=== PATIENT | female | born 1990 | race Caucasian/White ===

== ENCOUNTER 2020-10-09 10:56 | Outpatient (CLI) | payer BC, SELFPAY ==
[2020-10-09] VITALS (16 sets, daily range): BP systolic 106–138; BP diastolic 64–85; PULSE 70–91; TEMP 36.9; BMI 27.6
--- NOTE | 2020-10-09 12:28 | PC.NURSE ---
Dr. Diaz informed of reactive NST, BP's, labs just sent. Pt rates her headache as a 6 out of 10- pain is mainly above her right eye- some light sensitivity. Discussed pt hx of migraines, she tried Fioricet earlier in the for migraines without any relief. Pt had 1 gm of Tylenol at home at 0600 this am. Informed of nausea with headache and pt c/o have 2-3 loose/watery stools for the last 3 days. Headache x's 4 days without any improvement with Tylenol. Orders received.
[2020-10-09 12:33] LABS: Basophils Percent Auto 0.1 % (0.2-1.2); Eosinophils Absolute Auto 0.1 K/mm3 (0-0.3); Eosinophils Percent Auto 0.6 % (0-4.4); Hematocrit 33.1 % (37.0-47.0); Hemoglobin 11.4 g/dL (12.0-15.0); Immature Granulocyte Absolute 0.04 K/mm3 (0.00-0.031); Immature Granulocyte Percent A 0.4 % (0-0.5); Lymphocytes Absolute Auto 1.31 K/mm3 (0.9-3.2); Lymphocytes Percent Auto 14.6 % (18.3-44.2); Mean Corpuscular HGB Conc 34.4 g/dl (32-36); Mean Corpuscular Hemoglobin 32.3 pg (26-34); Mean Corpuscular Volume 93.8 fl (80-100); Mean Platelet Volume 10.8 fl (7.4-10.4); Monocytes Absolute Auto 0.8 K/mm3 (0.1-0.6); Monocytes Percent Auto 9.2 % (2.6-8.5); Neutrophils Absolute Auto 6.7 K/mm3 (1.3-6.7); Neutrophils Percent Auto 75.1 % (45.5-73.1); Platelet Count Result 213 k/mm3 (150-375); Red Blood Count 3.53 M/mm3 (4.2-5.4); Red Cell Distribution Width 12.4 % (11.5-14.5)
[2020-10-09 12:38] LABS: Add Urine Microscopic? YES; Appearance Urine Cloudy (Clear); Bacteria Urine 3+ /hpf; Bilirubin Urine Negative (Negative); Blood Urine Negative (Negative); Color Urine Yellow (Yellow); Glucose Urine UA Negative (Negative); Ketones Urine Negative (Negative); Leukocyte Esterase Ur Negative LEU/UL (Negative); Nitrate Urine Negative (Negative); Protein Urine Negative (Negative); RBC Urine 0-2 /hpf (0-2); Squamous Epithelial Cell Urine Occasional /hpf (Few); Urobilinogen Urine Negative mg/dL (<2.0); WBC Urine 0-3 /hpf
[2020-10-09 12:50] LABS: Creatinine Urine 52.6 mg/dL; Total Protein Urine Random 14 mg/dL; Ur Ttl Prot Creatinine Ratio 0.27 mg/mg (0-0.20)
[2020-10-09 12:51] LABS: Alanine Aminotransferase 16 U/L (4-35); Albumin Level 3.1 g/dL (3.5-5.1); Alkaline Phosphatase 146 U/L (38-126); Anion Gap 5 mmol/L (8-16); Aspartate Amino Transferase 30 U/L (14-36); Bilirubin,Total 0.3 mg/dL (0.2-1.3); Blood Urea Nitrogen 8 mg/dL (7-17); Calcium 8.7 mg/dL (8.4-10.2); Carbon Dioxide 23 mmol/L (22-30); Chloride 107 mmol/L (98-107); Estimated Glomerular Filt Rate > 60; Glucose 72 mg/dL (65-105); Potassium 4.1 mmol/L (3.4-5.0); Sodium 135 mmol/L (137-145); Uric Acid 6.1 mg/dL (2.5-7.5)
[2020-10-09] MEDS: ONDANSETRON HCL ODT 4 MG TABLET PO (12:52)
[2020-10-09] MEDS: MAGNESIUM OXIDE 400 MG TABLET PO (13:19)
--- NOTE | 2020-10-09 14:33 | PC.NURSE ---
MD informed of lab results. Nausea resolved after Zofran. Still rates headache a 5-6 out of 10. Pt has eaten lunch and starting to drink more fluids. Orders for discharge received.
--- NOTE | 2020-10-09 14:54 | PC.NURSE ---
Pt was sent home with 24 hr urine collection supplies to continue 24 hr urine collection that was started at 1110 today.
--- NOTE | 2020-10-09 14:57 | PC.NURSE ---
Dr. Diaz informed pt is requesting note to be off work for the remainder of . Order received. Pt will go through MD office to complete FMLA paperwork.
== END 2020-10-09 15:08 | disposition home or self-care (01) ==
LOC: ANHOBOP 10:59 → ANHOBPP 10:59
PROVIDERS: Visit Provider Obstetrics & Gynecology
DX: O13.9 Gestational [pregnancy-induced] hypertension without significant proteinuria, unspecified trimester (principal); Z3A.00 Weeks of gestation of pregnancy not specified
CPT/HCPCS: 36415; 59025; 80053; 81001; 82570; 84156; 84550; 85025; 99199; A9270

== ENCOUNTER 2020-10-10 12:39 | Outpatient (CLI) | payer BC, SELFPAY ==
[2020-10-10 12:48] VITALS: BMI 23.9
[2020-10-10 13:31] LABS: Collection Time Urine 24 HOURS
[2020-10-10 13:32] LABS: Total Volume 24 Hour Urine 3600 ml
[2020-10-10 13:46] LABS: Specific Gravity Ur 1.015
[2020-10-10 14:12] LABS: Creatinine Urine 33.2 mg/dL; Patient Weight 143 Lbs; Total Protein Urine Random 14 mg/dL
[2020-10-10 14:16] LABS: Total Protein Urine 24 Hr 504 mg/24hr (28-141)
== END 2020-10-10 12:40 | disposition home or self-care (01) ==
LOC: ANHOBOP 12:44
PROVIDERS: Visit Provider Obstetrics & Gynecology
DX: O13.9 Gestational [pregnancy-induced] hypertension without significant proteinuria, unspecified trimester (principal); Z3A.00 Weeks of gestation of pregnancy not specified
CPT/HCPCS: 81050; 82575; 84156

== ENCOUNTER 2020-10-10 17:32 | Observation (INO) | payer BC, SELFPAY ==
--- NOTE | 2020-10-10 18:15 | OBADM ---
This patient, Elizabeth Lieberman, admitted to the OB room Labor/Delivery/Recovery 103 for observation. Patient/family oriented to hospital policies and general routines including ID bracelet, bed and alarms, visiting hours, pain management, procedures, bathroom and other care routines, personal items, smoking policy, room service/diet, and visiting hours. Patient/Family are encouraged to report perceived risks to care and to ask questions if they do not understand what they are told or what they should do.
[2020-10-10 18:20] VITALS: BMI 26.9
--- NOTE | 2020-10-15 07:32 | PM.OBTRLD ---
OB - Triage/Final Diagnosis Visit Information Reason for evaluation: threatened labor Comments/Additional reasons for admission: I have assessed the risk for this patient, Elizabeth Arriaga Mio, and determined that she would benefit from observation care.
== END 2020-10-10 20:35 | disposition home or self-care (01) ==
PROVIDERS: Admitting Provider Obstetrics & Gynecology; Visit Provider Obstetrics & Gynecology
DX: O47.1 False labor at or after 37 completed weeks of gestation (principal); Z3A.37 37 weeks gestation of pregnancy
CPT/HCPCS: G0378; G0379

== ENCOUNTER 2020-10-18 15:35 | Inpatient (IN) | payer BC, SELFPAY ==
[2020-10-18] VITALS (7 sets, daily range): BP systolic 118–134; BP diastolic 67–91; PULSE 78–91; RESP 16–18; TEMP 36.8–37.2; BMI 27.3
[2020-10-18 16:18] LABS: Basophils Percent Auto 0.1 % (0.2-1.2); Eosinophils Absolute Auto 0.1 K/mm3 (0-0.3); Hemoglobin 11.4 g/dL (12.0-15.0); Immature Granulocyte Absolute 0.04 K/mm3 (0.00-0.031); Immature Granulocyte Percent A 0.5 % (0-0.5); Lymphocytes Absolute Auto 1.37 K/mm3 (0.9-3.2); Lymphocytes Percent Auto 15.5 % (18.3-44.2); Mean Corpuscular HGB Conc 33.5 g/dl (32-36); Mean Corpuscular Hemoglobin 31.6 pg (26-34); Mean Corpuscular Volume 94.2 fl (80-100); Mean Platelet Volume 10.9 fl (7.4-10.4); Monocytes Percent Auto 11.3 % (2.6-8.5); Neutrophils Absolute Auto 6.3 K/mm3 (1.3-6.7); Neutrophils Percent Auto 71.6 % (45.5-73.1); Platelet Count Result 203 k/mm3 (150-375); Red Blood Count 3.61 M/mm3 (4.2-5.4); Red Cell Distribution Width 12.7 % (11.5-14.5); White Blood Count 8.8 K/mm3 (4.5-10.0)
[2020-10-18] MEDS: DINOPROSTONE 10 MG VAG INSERT VAGINAL (16:25)
--- NOTE | 2020-10-18 16:33 | LDADM ---
This patient, Elizabeth Lieberman, was admitted to Labor/Delivery/Recovery 104 on 10/18/20 at 15:35. Plans for labor, pain management and were discussed with patient. Patient/family oriented to hospital policies and general routines including ID bracelet, bed and alarms, visiting hours, pain management, procedures, bathroom and other care routines, personal items, smoking policy, room service/diet and guest tray routines, security routines, call light and visiting hours. Patient/Family are encouraged to report perceived risks to care and to ask questions if they do not understand what they are told or what they should do. See OBIX for further documentation.
[2020-10-19] VITALS (157 sets, daily range): BP systolic 95–152; BP diastolic 51–108; PULSE 65–162; RESP 13–18; TEMP 36.4–36.9; O2SAT 95–100
[2020-10-19] MEDS: LACTATED RINGERS 1,000 ML 125 ML IV CONT ×3 (04:23→10:06)
[2020-10-19] MEDS: OXYTOCIN 30 UNITS/NS 500 ML 30 UNITS/500 ML BAG 6 UNITS IV CONT (04:25)
[2020-10-19] MEDS: fentaNYL CITRATE INJ (*CRX) 100 MCG/2 ML VIAL 50 MCG IV PUSH (08:56)
--- NOTE | 2020-10-19 09:42 | WPDANESEPP ---
Anes - Eval Pre Procedure Procedure: Labor Epidural Date/Time: 10/19/20 09:42 Surgeon: Quoc Preop Diagnosis: Labor Pain Pre Op Diagnosis: Induction of Labor Patient Data Age: 30 Gender: F Height: 5 ft Weight: 63.6 kg Last Vital Signs Temp 36.5 C 10/19/20 08:11 Pulse 88 10/19/20 09:36 Resp 16 10/18/20 22:21 BP 107/65 10/19/20 09:36 Pulse Ox 100 10/19/20 09:37 Allergies Allergy/AdvReac Type Severity Reaction Status Date / Time codeine Allergy Intermediate Rash Verified 10/18/20 16:26 Home Medications Medication Instructions Recorded Confirmed Type PNV cmb#95-ferrous fumarate-FA 1 tablet PO DAILY 09/25/20 10/18/20 History [] acetaminophen [Tylenol Extra 1,000 mg PO Q6H PRN 10/09/20 10/18/20 History Strength] Laboratory Tests 10/18/20 10/18/20 10/18/20 16:13 16:13 16:13 WBC 8.8 K/mm3 K/mm3 (4.5-10.0) RBC 3.61 M/mm3 L M/mm3 (4.2-5.4) Hgb 11.4 g/dL L g/dL (12.0-15.0) Hct 34.0 % L % (37.0-47.0) MCV 94.2 fl fl (80-100) MCH 31.6 pg pg (26-34) MCHC 33.5 g/dl g/dl (32-36) RDW 12.7 % % (11.5-14.5) Plt Count 203 k/mm3 k/mm3 (150-375) MPV 10.9 fl H fl (7.4-10.4) Immature Gran % (Auto) 0.5 % % (0-0.5) Neut % (Auto) 71.6 % % (45.5-73.1) Lymph % (Auto) 15.5 % L % (18.3-44.2) Bryan % (Auto) 11.3 % H % (2.6-8.5) Eos % (Auto) 1.0 % % (0-4.4) Baso % (Auto) 0.1 % L % (0.2-1.2) Lymph # (Auto) 1.37 K/mm3 K/mm3 (0.9-3.2) Bryan # (Auto) 1.0 K/mm3 H K/mm3 (0.1-0.6) Eos # (Auto) 0.1 K/mm3 K/mm3 (0-0.3) Baso # (Auto) 0.0 K/mm3 K/mm3 (0.0-0.1) Abs Immat Gran (auto) 0.04 K/mm3 H K/mm3 (0.00-0.031) Absolute Neuts (auto) 6.3 K/mm3 K/mm3 (1.3-6.7) Absolute Nucleated RBC 0.0 K/mm3 K/mm3 (0.0-0.012) Nucleated RBC % 0.0 % % (0.0-0.2) RPR Pending Blood Type B Positive Antibody Screen Negative : gestational age (10/25/20, ) Patient hx anesthesia problems: none Family hx anesthesia problems: none [facility] Family History Family History Other No pertinent family history Social History Social History Smoking status: Never smoker Substance use: never Gender identity (if verbalized by the patient): Female Spiritual care concerns: No Exam Day of Procedure 10/19/20 09:42 Patient weight: normal Heart: regular rate and rhythm Lungs: normal air movement Airway: Mallampati scale class II Neurological: alert and oriented
[2020-10-19] MEDS: ONDANSETRON INJ 4 MG/2 ML VIAL IV PUSH ×2 (10:39→14:04)
--- NOTE | 2020-10-19 16:02 | WPDHPUPDATE1 ---
History and Physical Update Update Date/Time: 10/19/20 16:02 History and Physical has been reviewed, including an updated exam of the patient. There are NO changes in the patient's condition. Risks, benefits, and alternatives have been discussed and questions answered. Patient agrees to proceed with procedure.
--- NOTE | 2020-10-19 16:02 | PM.IMHP ---
H&P: HPI History of Present Illness Date/Time: 10/19/20 16:02 30-year-old 1 patient at 39 weeks presents for induction of labor. Estimated weight prior to admission 8-1/2lb. records are on the chart and otherwise care has been uncomplicated. Chief Complaint: 39 week Review of Systems Review of Systems: All systems reviewed & are unremarkable except as noted in HPI and below PMFSH Family History Family History Other No pertinent family history Social History Social History Smoking status: Never smoker Substance use: never Gender identity (if verbalized by the patient): Female Spiritual care concerns: No Meds Home Medications and Allergies Home Medications Medication Instructions Recorded Confirmed Type PNV cmb#95-ferrous fumarate-FA 1 tablet PO DAILY 09/25/20 10/18/20 History [] acetaminophen [Tylenol Extra 1,000 mg PO Q6H PRN 10/09/20 10/18/20 History Strength] Allergies Allergy/AdvReac Type Severity Reaction Status Date / Time codeine Allergy Intermediate Rash Verified 10/18/20 16:26 Vital Signs Vital Signs - 24 hr 10/18/20 16:26 10/18/20 16:30 10/18/20 16:31 Temperature 36.9 C Pulse Rate 88 86 Respiratory Rate Blood Pressure 128/85 126/72 Pulse Oximetry 10/18/20 17:00 10/18/20 18:27 10/18/20 22:21 Temperature 37.2 C 36.8 C Pulse Rate 82 78 Respiratory Rate 18 16 Blood Pressure 118/67 127/91 H Pulse Oximetry 10/19/20 02:57 10/19/20 02:58 10/19/20 04:30 Temperature 36.7 C 36.7 C Pulse Rate 83 80 Respiratory Rate Blood Pressure 134/86 125/79 Pulse Oximetry 10/19/20 04:45 10/19/20 05:00 10/19/20 05:15 Temperature Pulse Rate 80 81 80 Respiratory Rate Blood Pressure 120/75 121/78 132/87 Pulse Oximetry 10/19/20 05:30 10/19/20 05:45 10/19/20 06:00 Temperature Pulse Rate 81 89 76 Respiratory Rate Blood Pressure 125/88 125/95 H 133/87 Pulse Oximetry 10/19/20 06:15 10/19/20 06:30 10/19/20 06:45 Temperature Pulse Rate 87 85 78 Respiratory Rate Blood Pressure 122/86 130/95 H 133/88 Pulse Oximetry 10/19/20 07:00 10/19/20 07:15 10/19/20 07:30 Temperature Pulse Rate 79 86 81 Respiratory Rate Blood Pressure 131/86 128/91 H 127/87 Pulse Oximetry 10/19/20 08:00 10/19/20 08:11 10/19/20 08:30 Temperature 36.5 C Pulse Rate 77 84 Respiratory Rate Blood Pressure 146/82 H 144/88 H Pulse Oximetry 10/19/20 09:00 10/19/20 09:17 10/19/20 09:19 Temperature Pulse Rate 90 95 Respiratory Rate Blood Pressure 133/83 131/88 Pulse Oximetry 99 10/19/20 09:22 10/19/20 09:25 10/19/20 09:27 Temperature Pulse Rate 96 90 Respiratory Rate Blood Pressure 131/81 125/78 Pulse Oximetry 98 100 10/19/20 09:28 10/19/20 09:30 10/19/20 09:32 Temperature Pulse Rate 93 100 72 Respiratory Rate Blood Pressure 130/84 134/78 112/60 Pulse Oximetry 100 10/19/20 09:33 10/19/20 09:36 10/19/20 09:37 Temperature Pulse Rate 87 88 Respiratory Rate Blood Pressure 113/72 107/65 Pulse Oximetry 100 10/19/20 09:42 10/19/20 09:45 10/19/20 09:47 Temperature Pulse Rate 81 90 Respiratory Rate Blood Pressure 102/53 L 102/60 Pulse Oximetry 99 99 10/19/20 09:48 10/19/20 09:51 10/19/20 09:52 Temperature Pulse Rate 90 85 Respiratory Rate Blood Pressure 107/57 L 105/61 Pulse Oximetry 98 10/19/20 09:54 10/19/20 09:56 10/19/20 09:57 Temperature Pulse Rate 83 88 Respiratory Rate Blood Pressure 101/58 L 99/65 L Pulse Oximetry 97 10/19/20 10:00 10/19/20 10:02 10/19/20 10:03 Temperature Pulse Rate 85 90 Respiratory Rate Blood Pressure 107/62 110/66 Pulse Oximetry 98 10/19/20 10:07 10/19/20 10:12 10/19/20 10:15 Temperature Pul
[2020-10-19] MEDS: ceFAZolin 2 GM/D5W 50 ML 2 GM/50 ML BAG IVPB (16:04)
[2020-10-19] MEDS: KETOROLAC 30 MG/ML VIAL (*BKC) IV PUSH (16:32)
--- NOTE | 2020-10-19 16:39 | P.PCNOB_ITS ---
OB - Delivery Note Procedure Procedure: Procedures Operation Date: 10/19/20 16:15 <No data on this case meets the specified criteria> Route of delivery: Indication for instrumentation: other (Arrest of descent) Specimen: No Quantitative Blood Loss (ml): 295 Anesthesia type: Epidural Disposition: floor Narrative: Patient prepped and draped in usual manner for this procedure. Pfannenstiel incision was carried to the fascia and extended bilaterally the length of the skin incision. Superiorly and inferiorly dissected away from the rectus muscles peritoneum maternal entered and the bladder flap was developed. Uterus scored with clear fluid noted and vertex was delivered section naso- oropharynx rest baby was delivered as well. Placenta removed manually uterus was exteriorized cleared of membranes and clots and rendered hemostatic with a 0 Monocryl running interlocking manner with good approximation noted. Uterus was turned the abdominal cavity all subfascial tissue was noted be hemostatic and the in uterine incision was again inspected with hemostasis noted. Fascia was approximated using 0 Vicryl from the left angle midline right angle to the midline subcutaneous tissue approximated using 0 plain suture. Skin was then approximated using higinio. Patient was sent to cover room in stable condition. [place] Baby Weeks of gestation at delivery: 39 gender: Female Weight (pounds): 8 Weight (ounces): 10 score one minute: 8 score five minutes: 9
[2020-10-19] MEDS: fentaNYL CITRATE INJ (*CRX) 100 MCG/2 ML VIAL 25 MCG IV PUSH ×2 (18:24→18:48)
[2020-10-19] MEDS: OXYTOCIN 30 UNITS/NS 500 ML 30 UNITS/500 ML BAG 125 UNITS IV CONT (18:48)
[2020-10-19] MEDS: LORATADINE 10 MG TABLET (19:54)
[2020-10-19] MEDS: HYDROcodone/acetaminophen (*CRX) 5-325 MG TABLET 1 TAB PO (21:15)
--- NOTE | 2020-10-19 21:36 | PC.NURSE ---
10/19/2020 at 1915 Patient transferred to post room #290 via stretcher. Support person present. Patient transferred with assistance of 2 nurses and 1 technical planner using the maxi air glide mattress. Patient tolerated well. Patient and her significant other oriented to unit, room, information board, rooming in, admission packet and security measures. Patient verbalizes understanding.
[2020-10-19] MEDS: KCL 20 MEQ/D5/0.45% SOD CHL 1,000 ML 125 ML IV CONT (23:13)
[2020-10-20] VITALS (7 sets, daily range): BP systolic 112–137; BP diastolic 75–85; PULSE 70–85; RESP 15–18; TEMP 36.6–37.1; O2SAT 100
[2020-10-20] MEDS: IBUPROFEN 600 MG TABLET PO ×3 (04:36→21:00)
[2020-10-20 05:26] LABS: Basophils Percent Auto 0.1 % (0.2-1.2); Hemoglobin 11.2 g/dL (12.0-15.0); Immature Granulocyte Absolute 0.12 K/mm3 (0.00-0.031); Immature Granulocyte Percent A 0.6 % (0-0.5); Lymphocytes Absolute Auto 1.21 K/mm3 (0.9-3.2); Lymphocytes Percent Auto 5.9 % (18.3-44.2); Mean Corpuscular HGB Conc 33.9 g/dl (32-36); Mean Corpuscular Hemoglobin 31.4 pg (26-34); Mean Corpuscular Volume 92.4 fl (80-100); Mean Platelet Volume 11.3 fl (7.4-10.4); Monocytes Absolute Auto 1.5 K/mm3 (0.1-0.6); Monocytes Percent Auto 7.1 % (2.6-8.5); Neutrophils Absolute Auto 17.8 K/mm3 (1.3-6.7); Neutrophils Percent Auto 86.3 % (45.5-73.1); Platelet Count Result 207 k/mm3 (150-375); Red Blood Count 3.57 M/mm3 (4.2-5.4); Red Cell Distribution Width 12.3 % (11.5-14.5); White Blood Count 20.6 K/mm3 (4.5-10.0)
[2020-10-20] MEDS: DEXTROSE 5%/0.45% SOD CHL 1,000 ML 125 ML IV CONT (07:15)
--- NOTE | 2020-10-20 07:36 | WPDANLDPN2 ---
Anes-Prog Note L&D Date/Time: 10/20/20 07:36 Comfortable throughout: labor and section Neuraxial method: epidural Epidural/Spinal procedure site: clean & non-tender Neuro status: Neuro function grossly intact. Cardiovascular status: normal Respiratory status: normal Airway patency: baseline Mental status: baseline Post-Op hydration status: normal Vital Signs: Last Vital Signs Temp 37.1 C 10/20/20 04:50 Pulse 73 10/20/20 04:50 Resp 18 10/20/20 04:50 BP 128/85 10/20/20 04:50 Pulse Ox 97 10/19/20 23:14 Pain score (VAS): 0/10. Patient resting in bed at time of assessment, appears comfortable. Support person at bedside. I/O: Intake & Output 10/19/20 10/19/20 10/20/20 15:59 23:59 07:59 Intake Total 1999 150 1285 Output Total 898 Balance 2000 -748 1285 Post-procedural complaints: none Patient feedback: Patient satisfied with anesthetic care.
--- NOTE | 2020-10-20 07:36 | WPDANLDNPN2 ---
Anes-Prog Note L&D-Neuraxial Date/Time: 10/20/20 07:36 Neuraxial medications: epidural PF morphine Opiod-related complaints: none Patient feedback: Patient satisfied with post-operative pain management.
[2020-10-20 07:58] LABS: Rapid Plasma Reagin Non-Reactive (NonReactive)
[2020-10-20] MEDS: DOCUSATE SODIUM 100 MG CAPSULE PO ×2 (09:16→16:12)
[2020-10-20] MEDS: HYDROcodone/acetaminophen (*CRX) 5-325 MG TABLET 1 TAB PO ×3 (09:16→21:02)
[2020-10-20] MEDS: MULTIVIT/MIN/PREN/FOL AC/IRON TABLET 1 TAB PO (09:16)
--- NOTE | 2020-10-20 10:40 | PC.NURSE ---
Mother called out for assist with feeding. Mother reports infant is eagerly feeding with tenderness at times. is frequently sleepy and parents report they are not waking to feed by three hours. Reviewed infant feeding cues, frequencies, duration of feedings, feeding elimination flow sheet, and signs of adequate intake. Advised to call out for RN to wake for feedings as needed. Demonstrated stimulation techniques to wake for feeding. Assisted with infant to breast. Reviewed positioning/alignment in cross cradle, holding breast in ?U? hold and guided asymmetrical latch on. able to latch correctly after several attempts and minutes of stimulation to wake. Infant nursed eagerly with bursts of steady draws and occasional noted followed with long pausing. Suggested mother stimulate while feeding to increase stimulate, increase intake and to assist with maintaining deep latch. Reviewed signs of a correct latch, effective nursing and suck swallow ratio. Infant would slip to shallow latch, mother reports tenderness. Demonstrated how to adjust latch more deeply while feeding. Mother reports she can feel change in latch and has no tenderness. Nipple care reviewed of lanolin after feedings, warm compresses as needed. Mother has had a surgery to right wrist, which right wrist fixed and unable to hold breast for latching, Worked with football on right breast and cross cradle to left to best assist mother with positioning/alignment. Assisted with pillows and wrist roll to support infant. Instructed mother to call out for RN assistance if she is unable to latch infant for feeding or she has discomfort with nursing. Instructed feeding should be initiated three hours from start of last feeding or if feeding cues are noted before. Mother voiced understanding of information shared.
--- NOTE | 2020-10-20 12:00 | PC.NURSE ---
Mother called out for assist with positioning for feeding. Demonstrated stimulation techniques to wake for feeding. Assisted with infant to breast. Reviewed positioning/alignment football, holding in C hold breast and guided asymmetrical latch on. was able to latch correctly. Infant nursed eagerly with bursts of steady draws and occasional swallowing noted followed with long pausing. Reviewed signs of a correct latch, effective nursing and suck swallow ratio. was able to maintain latch without discomfort to mother. Nipple care reviewed. Stressed for parents to stimulate infant to keep awake and feeding effectively. Instructed mother to call out for RN assistance if she is unable to latch infant for feeding or she has discomfort with nursing. Instructed feeding should be initiated three hours from start of last feeding or if feeding cues are noted before. Mother voiced understanding of information shared.
--- NOTE | 2020-10-20 13:24 | WPDANESPN ---
Anes - Prog Note Post-Op Date/Time: 10/20/20 13:24 Cardiovascular status: normal Respiratory status: normal Airway patency: baseline Mental status: baseline Post-Op hydration status: normal Vital Signs: Last Vital Signs Temp 36.6 C 10/20/20 12:30 Pulse 70 10/20/20 13:00 Resp 16 10/20/20 13:00 BP 112/75 10/20/20 12:30 Pulse Ox 100 10/20/20 13:00 Pain Score (VAS): 0 I/O: Intake & Output 10/19/20 10/20/20 10/20/20 23:59 07:59 15:59 Intake Total 150 1385 1966 Output Total 841 564 9021 Balance -748 835 766 Laboratory Tests 10/20/20 04:42 10/18/20 10/20/20 16:13 04:42 WBC 20.6 H RBC 3.57 L Hgb 11.2 L Hct 33.0 L MCV 92.4 MCH 31.4 MCHC 33.9 RDW 12.3 Plt Count 207 MPV 11.3 H Immature Gran % (Auto) 0.6 H Neut % (Auto) 86.3 H Lymph % (Auto) 5.[address] [facility] % (Auto) 7.1 Eos % (Auto) 0.0 Baso % (Auto) 0.1 L Lymph # (Auto) 1.21 [facility] # (Auto) 1.5 H Eos # (Auto) 0.0 Baso # (Auto) 0.0 Abs Immat Gran (auto) 0.12 H Absolute Neuts (auto) 17.8 H Absolute Nucleated RBC 0.0 Nucleated RBC % 0.0 RPR Non-reactive Post-procedural complaints: none Patient Feedback: Patient satisfied with anesthetic care.
--- NOTE | 2020-10-20 13:24 | WPDANLDNPN2 ---
Anes-Prog Note L&D-Neuraxial Date/Time: 10/20/20 13:24 Neuraxial medications: intrathecal PF morphine Opiod-related complaints: none Patient feedback: Patient satisfied with post-operative pain management.
[2020-10-20] MEDS: HYDROcodone/acetaminophen (*CRX) 10-325 MG TABLET 1 TAB PO (16:16)
[2020-10-21] MEDS: HYDROcodone/acetaminophen (*CRX) 5-325 MG TABLET 1 TAB PO ×2 (02:04→07:59)
[2020-10-21] MEDS: SIMETHICONE 80 MG TAB.CHEW PO ×3 (02:04→12:04)
--- NOTE | 2020-10-21 07:00 | PC.NURSE ---
PT introductions made and plan of care discussed per post op c section, pain management, breast feeding, daily care activities and pending discharge to home. PT will and has received instructions and education per one to one discussion, demonstration, and mom baby care guide. Mom has no barriers to learning. Mom and spouse both recipients of such instructions. Both verbalized understanding of such care.
--- NOTE | 2020-10-21 07:36 | P.DS_ITS ---
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 Status: Acute OB - DS: Summary OB Procedures : None OB Procedures Intrapartum: OB Procedures: : None Peripartum Data Procedures: Procedures Operation Date: 10/19/20 16:15 Actual Procedure Side Surgeon p Section Not Applicable Al Kumari MD Time Spent with Patient Time attestation: Total time spent providing and/or coordinating discharge services: DS: Data Data Completed and Pending Labs on day of discharge: Labs from last 24 hours 10/18/20 16:13 RPR Non-reactive Discharge Plan Discharge Discharging Clinician: Al Kumari Patient Disposition: Home, Self-Care Activity: as tolerated Diet: as tolerated Wound Care Instructions: incision open to air Patient Instructions: Antibiotic Form Stand Alone Forms: General Discharge Information Follow-up/Referrals: Al Kumari MD [Physician] - 3 Weeks Discharge Medications: New hydrocodone-acetaminophen 5-325 mg Tablet 1 tablet PO Q3H PRN (Reason: Moderate Pain (4-6)) Qty: 30 RF: 0 ibuprofen 600 mg Tablet 600 mg PO Q6H PRN (Reason: Cramping) Qty: 30 RF: 0 Continued acetaminophen [Tylenol Extra Strength] 500 mg Tablet 1,000 mg PO Q6H PRN (Reason: Headache) RF: 0 PNV cmb#95-ferrous fumarate-FA [] 28 mg iron- 800 mcg Tablet 1 tablet PO DAILY RF: 0 Date of admission: 10/18/20 15:35 Primary Care Provider: PHYSICIAN,INTERNATIONAL TRADE SPECIALIST Admitting Provider: Al Kumari Attending physician on admission: Al Kumari Condition: Stable
[2020-10-21 07:55] VITALS: BP 147/88; PULSE 83; RESP 16; TEMP 37; O2SAT 100
[2020-10-21] MEDS: DOCUSATE SODIUM 100 MG CAPSULE PO (07:59)
[2020-10-21 08:00] VITALS: PULSE 83; RESP 16; O2SAT 100
[2020-10-21] MEDS: MULTIVIT/MIN/PREN/FOL AC/IRON TABLET 1 TAB PO (08:01)
[2020-10-21] MEDS: IBUPROFEN 600 MG TABLET PO (08:01)
[2020-10-21] MEDS: HYDROcodone/acetaminophen (*CRX) 10-325 MG TABLET 1 TAB PO (12:08)
--- NOTE | 2020-10-21 12:15 | PC.NURSE ---
Mother is able to independently latch with appropriate positioning/alignment. She denies any nipple discomfort, is feeding as required and waking infant to feed if needed. Infant has had at least effective feedings in the past 24 hours, and is currently meeting outcomes for weight, output, jaundice and feeding frequencies. However, infant is at 8% weight loss and 7.9 jaundice, ICP would like infant to be supplemented after each feeding until mother's milk is in. Reviewed feeding plan to supplement 20-30 mls after each . Mother will initiate pumping after every other feeding for now. Advised to continue to supplement until seen by follow up RN. Discussed to increase supplementation as infant desires, reviewing infant may want to feed every 4 hours with supplementation. Mother will continue to pump every other feeding for 15-20 minutes. Mother has a pump for home use. Mother states she feels confident to continue current feeding plan at home. Reviewed transition to breast milk, signs of adequate intake, and engorgement/relief. Instructed to call ICP if intake/output less than required. Reviewed regular medications mother is taking. Information provided per Ernestina. Reviewed community resources on the [facility] website and in the Mom/Baby guide. Information on outpatient services provided. Mother has no further questions at this time.
--- NOTE | 2020-10-21 14:00 | PC.NURSE ---
PT received discharge instructions per protocol and verbalized understanding of such instructions. Patient was given the opportunity to view the discharge video Mother & Baby Care, The First Two Weeks and to ask questions. Patient declined viewing the video and has been given the mother/baby guide for home reference.
--- NOTE | 2020-10-21 14:40 | PC.NURSE ---
PT discharged to home ambulatory accompanied by spouse and to waiting car. follow up appts confirmed
[2020-10-22 08:20] VITALS: BP 132/94; PULSE 85; RESP 20; TEMP 36.6; O2SAT 99
== END 2020-10-21 14:40 | disposition home or self-care (01) | DRG 788 ==
LOC: ANHLDR 15:42 → ANHOB2 10-19 20:15
PROVIDERS: Admitting Provider Obstetrics & Gynecology; Visit Provider Obstetrics & Gynecology
PROC: 10D00Z1 Extraction of Products of Conception, Low, Open Approach (ICD-10-PCS; CPT 59514; principal; 2020-10-19 16:15)
DX: O62.1 Secondary uterine inertia (principal); O76 Abnormality in fetal heart rate and rhythm complicating labor and delivery; Z3A.39 39 weeks gestation of pregnancy; Z37.0 Single live birth
CPT/HCPCS: 36415; 84112; 85025; 86592; 86850; 86900; 86901; A9270; J0131; J0690; J1100; J1885; J2274; J2405; J2590; J2795; J3010; J3480; J7120

== ENCOUNTER 2022-02-25 12:02 | Outpatient (CLI) | payer BC, SELFPAY ==
[2022-02-25 20:19] LABS: Basophils Percent Auto 0.4 % (0.2-1.2); Eosinophils Absolute Auto 0.1 K/mm3 (0-0.3); Eosinophils Percent Auto 0.7 % (0-4.4); Hematocrit 34.8 % (37.0-47.0); Hemoglobin 11.5 g/dL (12.0-15.0); Immature Granulocyte Absolute 0.01 K/mm3 (0.00-0.031); Immature Granulocyte Percent A 0.1 % (0-0.5); Lymphocytes Absolute Auto 1.72 K/mm3 (0.9-3.2); Lymphocytes Percent Auto 20.8 % (18.3-44.2); Mean Corpuscular Hemoglobin 30.7 pg (26-34); Mean Platelet Volume 9.4 fl (7.4-10.4); Monocytes Absolute Auto 0.4 K/mm3 (0.1-0.6); Monocytes Percent Auto 5.2 % (2.6-8.5); Neutrophils Percent Auto 72.8 % (45.5-73.1); Nucleated Red Blood Cells Perc 0.4 % (0.0-0.2); Platelet Count Result 320 k/mm3 (150-375); Red Blood Count 3.74 M/mm3 (4.2-5.4); Red Cell Distribution Width 13.6 % (11.5-14.5); White Blood Count 8.3 K/mm3 (4.5-10.0)
[2022-02-25 20:49] LABS: Hepatitis B Surface Antigen Negative (Negative); Rubella IgG Antibody 7.5 IU/ML
[2022-02-25 23:29] LABS: HIV 1/2 Ab P24 Ag Result Negative (Negative)
[2022-02-26 12:41] LABS: Rapid Plasma Reagin Non-Reactive (NonReactive)
[2022-02-28 16:46] LABS: CMV IgG Antibody <0.60 U/mL (<0.60)
== END 2022-02-25 12:03 | disposition home or self-care (01) ==
LOC: ANHGOSHLAB 12:03
PROVIDERS: Visit Provider Obstetrics & Gynecology
DX: Z34.90 Encounter for supervision of normal pregnancy, unspecified, unspecified trimester (principal); Z3A.00 Weeks of gestation of pregnancy not specified
CPT/HCPCS: 36415; 85025; 86592; 86644; 86703; 86747; 86762; 86787; 86850; 86900; 86901; 87086; 87340; G0432

== ENCOUNTER 2022-04-15 10:00 | Inpatient (IN) | payer BC, SELFPAY ==
[2022-04-15] VITALS (16 sets, daily range): BP systolic 94–122; BP diastolic 53–89; PULSE 70–108; TEMP 37.1; O2SAT 98–100; BMI 24.5
[2022-04-15] MEDS: ACETAMINOPHEN 500 MG TABLET 1000 MG PO (10:55)
[2022-04-15] MEDS: miSOPROStol 200 MCG TABLET 800 MCG VAGINAL (12:03)
[2022-04-15 12:05] LABS: Basophils Percent Auto 0.1 % (0.2-1.2); Eosinophils Absolute Auto 0.1 K/mm3 (0-0.3); Eosinophils Percent Auto 0.6 % (0-4.4); Hematocrit 41.9 % (37.0-47.0); Hemoglobin 14.2 g/dL (12.0-15.0); Immature Granulocyte Absolute 0.03 K/mm3 (0.00-0.031); Immature Granulocyte Percent A 0.3 % (0-0.5); Lymphocytes Absolute Auto 1.78 K/mm3 (0.9-3.2); Lymphocytes Percent Auto 19.9 % (18.3-44.2); Mean Corpuscular HGB Conc 33.9 g/dl (32-36); Mean Corpuscular Hemoglobin 31.3 pg (26-34); Mean Corpuscular Volume 92.5 fl (80-100); Mean Platelet Volume 9.3 fl (7.4-10.4); Monocytes Absolute Auto 0.7 K/mm3 (0.1-0.6); Neutrophils Absolute Auto 6.4 K/mm3 (1.3-6.7); Neutrophils Percent Auto 71.1 % (45.5-73.1); Platelet Count Result 216 k/mm3 (150-375); Red Blood Count 4.53 M/mm3 (4.2-5.4); Red Cell Distribution Width 13.4 % (11.5-14.5); White Blood Count 8.9 K/mm3 (4.5-10.0)
[2022-04-15 12:24] LABS: Glucose 85 mg/dL (65-110)
[2022-04-15 12:53] LABS: Free T4 Free Thyroxine 0.95 ng/mL (0.78-2.19)
[2022-04-15 13:27] LABS: HIV 1/2 Ab P24 Ag Result Negative (Negative)
--- NOTE | 2022-04-15 17:27 | PM.IMHP ---
H&P: HPI History of Present Illness Date/Time: 04/15/22 17:27 31-year-old female presents at 23 0.5 weeks gestation with decreased movement. Had been in normal state of health denies any trauma or illness, has not felt significant movement for the last day or 2. No bleeding or significant contractions or leaking of fluid. records are on the chart and no significant abnormalities. She has had a prior delivery and this is a an IVF . Chief Complaint: Decreased movement PMFSH Past Medical History Medical History Anxiety and depression History of in vitro fertilization 02/07/20 IVF transfer/ 11/19/2021 2019 Migraines Surgical History Surgical History History of 10/19/20 primary c/s--arrest of descent History of orthopedic surgery umbilical cord wrapped around right arm--surgery for bone lengthening Family History Family History Grandparent Acute myocardial infarction maternal grandfather Malignant tumor of ovary maternal grandmother Other Carcinoma of colon maternal aunt Social History Social History Smoking status: Never smoker Second hand tobacco smoke exposure: No Alcohol intake: never Substance use: never Substance use type: does not use Additional living arrangements comments: Additional occupation/education comments: pharmacist Gender identity (if verbalized by the patient): Female Sexual Orientation (if Verbalized by the Patient): Straight or Heterosexual Spiritual care concerns: No Meds Home Medications and Allergies Home Medications Medication Instructions Recorded Confirmed Type vit no.95-ferrous 1 tablet PO DAILY 09/25/20 04/15/22 History fumarate 28 mg-folic acid 800 mcg tablet () acetaminophen 500 mg tablet 1,000 mg PO Q6H PRN Headache 10/09/20 04/15/22 History (Tylenol Extra Strength) sertraline 50 mg tablet 50 mg PO DAILY 02/02/22 04/15/22 History Allergies Allergy/AdvReac Type Severity Reaction Status Date / Time codeine Allergy Intermediate Rash Verified 03/30/22 10:47 Vital Signs Vital Signs - 24 hr 04/15/22 12:07 Oxygen Delivery Room Air Exam Const: General: cooperative, healthy appearing and comfortable Resp: Effort & Inspection: normal respiratory effort Auscultation: clear to auscultation bilaterally Cardio: Rate: regular rate Rhythm: regular rhythm GI: Inspection: normal to inspection : Bimanual exam- vagina & uterus: enlarged ( fundal height 23cm. heart tones not auscultated.) H&P: Results Labs Labs: Short CBC 04/15/22 Range/Units 11:10 WBC 8.9 (4.5-10.0) K/mm3 Hgb 14.2 (12.0-15.0) g/dL Hct 41.9 (37.0-47.0) % Plt Count 216 (150-375) k/mm3 [facility] 04/15/22 11:10 Glucose 85 Assessment and Plan Assessment and plan (1) 23 weeks gestation of : Code(s): Z3A.23 - 23 weeks gestation of Status: Acute (2) IUFD at 20 weeks or more of gestation: Code(s): O36.4XX0 - Maternal care for intrauterine , not applicable or unspecified Status: Acute Plan 1. Ultrasounds performed and no movement and no cardiac activity is noted 2. Given option of expectant management versus proceeding with Cytotec induction, desires induction. 3. Will initiate Cytotec induction.
--- NOTE | 2022-04-15 17:32 | WPDHPUPDATE1 ---
History and Physical Update Update Date/Time: 04/15/22 17:32 History and Physical has been reviewed, including an updated exam of the patient. There are NO changes in the patient's condition. Risks, benefits, and alternatives have been discussed and questions answered. Patient agrees to proceed with procedure.
[2022-04-15] MEDS: miSOPROStol 200 MCG TABLET 400 MCG SUBLINGUAL (18:17)
[2022-04-15] MEDS: fentaNYL CITRATE INJ (*CRX) 100 MCG/2 ML VIAL 50 MCG IV PUSH ×2 (18:26→18:58)
[2022-04-15] MEDS: ONDANSETRON INJ 4 MG/2 ML VIAL IV PUSH (18:34)
--- NOTE | 2022-04-15 18:54 | PC.NURSE ---
met briefly with Ashley. Mother tearful, appropriate. Share support presented to them. Encouraged parents to hold baby, and spend time with baby as they need/want. At this time had no questions, but mother also starting to feel stronger contractions with labor. Agreed to talk again at some point after delivery.
[2022-04-15] MEDS: fentaNYL CITRATE INJ (*CRX) 100 MCG/2 ML VIAL IV PUSH (20:02)
[2022-04-15] MEDS: OXYTOCIN 30 UNITS/NS 500 ML 30 UNITS/500 ML BAG 999 UNITS IV CONT (20:28)
--- NOTE | 2022-04-15 20:31 | PM.OBPRVD ---
OB - Delivery Note Procedure Events: Breech Presentation, Previous Delivery and Other (IUFD) Induction method: Per Misoprostol Protocol Delivery augmentation: Rupture of Membranes Delivery monitor: None Route of delivery: Episiotomy description: None Laceration Description: None Specimen: Yes Quantitative Blood Loss (ml): 350 Anesthesia type: None Disposition: Floor Complications: none Narrative: patient prepped usual manner. Maternal expulsive efforts delivered fetus in a breech presentation. Cervix clamped down around baby's head, with further pushing was able to deliver. Cord was clamped and cut and then the placenta did deliver intact. There was minimal bleeding. No lacerations or tears. At this point procedure was considered complete. Baby Weeks of gestation at delivery: 23 Infant gender: Male presentation: breech Placenta delivery description: Spontaneous Cord Vessel Description: 3 Vessels score one minute: 0 score five minutes: 0 AMG Delivery Billing Delivery Delivery: Delivery Charge
[2022-04-15] MEDS: IBUPROFEN 600 MG TABLET PO (22:35)
[2022-04-15] MEDS: ZOLPIDEM TARTRATE (*CRX) 5 MG TABLET PO (22:36)
[2022-04-16 01:11] VITALS: BP 89/52; PULSE 83; TEMP 36.8
[2022-04-16 05:06] VITALS: BP 102/58; PULSE 78
[2022-04-16 05:08] VITALS: TEMP 36.9
[2022-04-16 05:36] LABS: Hematocrit 35.8 % (37.0-47.0); Hemoglobin 12.1 g/dL (12.0-15.0)
--- NOTE | 2022-04-16 08:21 | PM.OBDSVD ---
DS: Admitting Diagnosis Discharge Date 04/16/2022 Admitting Diagnosis OB - DS: Summary OB Procedures : None OB Procedures Intrapartum: Spontaneous Vag Delivery OB Procedures: : None Time Spent with Patient Time attestation: Total time spent providing and/or coordinating discharge services: DS: Data Data Completed and Pending Pending studies at discharge: Pending at discharge 04/15/22 20:26 Surgical [PTH] Routine Labs on day of discharge: Labs from last 24 hours 04/16/22 04/15/22 04/15/22 05:16 11:10 11:10 WBC RBC Hgb 12.1 Hct 35.8 L MCV MCH MCHC RDW Plt Count MPV Immature Gran % (Auto) Neut % (Auto) Lymph % (Auto) [place] % (Auto) Eos % (Auto) Baso % (Auto) Lymph # (Auto) [place] # (Auto) Eos # (Auto) Baso # (Auto) Abs Immat Gran (auto) Absolute Neuts (auto) Absolute Nucleated RBC Nucleated RBC % LA PTT Screen dRVVT Screen dRVVT Additional Test Lupus Anticoag Interp Glucose TSH Free T4 Beta-2-GPI IgG Ab Beta-2-GPI IgA Ab Beta-2-GPI IgM Ab Anti-Cardiolipin IgG Ab Anti-Cardiolipin IgA Ab Anti-Cardiolipin IgM Ab RPR CMV IgG Ab CMV IgM Ab HIV 1&2 Ab/P24 Ag 4thGn Negative Blood Type Antibody Screen KB Hemoglobin Negative 04/15/22 04/15/22 04/15/22 11:10 11:10 11:10 WBC RBC Hgb Hct MCV MCH MCHC RDW Plt Count MPV Immature Gran % (Auto) Neut % (Auto) Lymph % (Auto) [place] % (Auto) Eos % (Auto) Baso % (Auto) Lymph # (Auto) [place] # (Auto) Eos # (Auto) Baso # (Auto) Abs Immat Gran (auto) Absolute Neuts (auto) Absolute Nucleated RBC Nucleated RBC % LA PTT Screen dRVVT Screen dRVVT Additional Test Lupus Anticoag Interp Glucose TSH Free T4 Beta-2-GPI IgG Ab Pending Beta-2-GPI IgA Ab Pending Beta-2-GPI IgM Ab Pending Anti-Cardiolipin IgG Ab Pending Anti-Cardiolipin IgA Ab Pending Anti-Cardiolipin IgM Ab Pending RPR Pending CMV IgG Ab Pending CMV IgM Ab Pending HIV 1&2 Ab/P24 Ag 4thGn Blood Type Antibody Screen KB Hemoglobin 04/15/22 04/15/22 04/15/22 11:10 11:10 11:10 WBC RBC Hgb Hct MCV MCH MCHC RDW Plt Count MPV Immature Gran % (Auto) Neut % (Auto) Lymph % (Auto) [place] % (Auto) Eos % (Auto) Baso % (Auto) Lymph # (Auto) [place] # (Auto) Eos # (Auto) Baso # (Auto) Abs Immat Gran (auto) Absolute Neuts (auto) Absolute Nucleated RBC Nucleated RBC % LA PTT Screen Pending dRVVT Screen Pending dRVVT Additional Test Pending Lupus Anticoag Interp Pending Glucose 85 TSH 0.950 Free T4 0.95 Beta-2-GPI IgG Ab Beta-2-GPI IgA Ab Beta-2-GPI IgM Ab Anti-Cardiolipin IgG Ab Anti-Cardiolipin IgA Ab Anti-Cardiolipin IgM Ab RPR CMV IgG Ab CMV IgM Ab HIV 1&2 Ab/P24 Ag 4thGn Blood Type Antibody Screen KB Hemoglobin 04/15/22 04/15/22 11:10 11:10 WBC 8.9 RBC 4.53 Hgb 14.2 Hct 41.9 MCV 92.5 MCH 31.3 MCHC 33.9 RDW 13.4 Plt Count 216 MPV 9.3 Immature Gran % (Auto) 0.3 Neut % (Auto) 71.1 Lymph % (Auto) 19.9 Pike % (Auto) 8.0 Eos % (Auto) 0.6 Baso % (Auto) 0.1 L Lymph # (Auto) 1.78 Pike # (Auto) 0.7 H Eos # (Auto) 0.1 Baso # (Auto) 0.0 Abs Immat Gran (auto) 0.03 Absolute Neuts (auto) 6.4 Absolute Nucleated RBC 0.0 Nucleated RBC % 0.0 LA PTT Screen dRVVT Screen dRVVT Additional Test Lupus Anticoag Interp Glucose TSH Free T4 Beta-2-GPI IgG Ab Beta-2-GPI IgA Ab Beta-2-GPI IgM Ab Anti-Cardiolipin IgG Ab Anti-Cardiolipin IgA Ab Anti-Cardiolipin IgM Ab RPR CMV IgG Ab CMV IgM Ab HIV 1&2 Ab/P24 Ag 4thGn Blood Type B Positive Antibody Sc
[2022-04-16 08:50] VITALS: TEMP 36.7
[2022-04-16 08:51] VITALS: BP 100/64; PULSE 76
[2022-04-16 11:28] LABS: Rapid Plasma Reagin Non-Reactive (NonReactive)
[2022-04-19 05:29] LABS: Anti Cardio Antibody IgM <2.0 MPL-U/mL (<20.0); Anti Cardiolipin Antibody IgA <2.0 APL-U/mL (<20.0); Anti Cardiolipin Antibody IgG <2.0 GPL-U/mL (<20.0)
[2022-04-19 08:11] LABS: CMV IgG Antibody <0.60 U/mL (<0.60)
[2022-04-19 09:23] LABS: CMV IgM Antibody <30.00 AU/mL (<30.00)
[2022-04-20 21:27] LABS: Hexagonal Phase Confirm Negative (Negative); Lupus dRVVT Screen 28 sec (<=45); PTT-LA Screen 44 sec (<=40)
== END 2022-04-16 09:05 | disposition home or self-care (01) | DRG 807 ==
LOC: ANHOBOP 10:15 → ANHLDR 10:15
PROVIDERS: Admitting Provider Obstetrics & Gynecology; Visit Provider Obstetrics & Gynecology
DX: O36.4XX0 Maternal care for intrauterine death, not applicable or unspecified (principal); Z37.1 Single stillbirth; Z3A.23 23 weeks gestation of pregnancy; O32.1XX0 Maternal care for breech presentation, not applicable or unspecified; O34.211 Maternal care for low transverse scar from previous cesarean delivery
CPT/HCPCS: 36415; 82947; 84439; 84443; 85014; 85018; 85025; 85460; 85598; 85613; 85730; 86146; 86147; 86592; 86644; 86645; 86703; 86850; 86900; 86901; 88307; A9270; G0432; J2405; J2590; J3010

== ENCOUNTER 2022-09-22 15:24 | Outpatient (CLI) | payer BC, SELFPAY ==
[2022-09-22 19:45] LABS: Basophils Percent Auto 0.1 % (0.2-1.2); Eosinophils Absolute Auto 0.2 K/mm3 (0-0.3); Eosinophils Percent Auto 2.3 % (0-4.4); Hematocrit 34.4 % (37.0-47.0); Hemoglobin 11.5 g/dL (12.0-15.0); Immature Granulocyte Absolute 0.02 K/mm3 (0.00-0.031); Immature Granulocyte Percent A 0.3 % (0-0.5); Lymphocytes Percent Auto 24.1 % (18.3-44.2); Mean Corpuscular HGB Conc 33.4 g/dl (32-36); Mean Corpuscular Hemoglobin 31.4 pg (26-34); Mean Platelet Volume 9.6 fl (7.4-10.4); Monocytes Absolute Auto 0.8 K/mm3 (0.1-0.6); Monocytes Percent Auto 10.6 % (2.6-8.5); Neutrophils Absolute Auto 4.4 K/mm3 (1.3-6.7); Neutrophils Percent Auto 62.6 % (45.5-73.1); Platelet Count Result 277 k/mm3 (150-375); Red Blood Count 3.66 M/mm3 (4.2-5.4); Red Cell Distribution Width 13.2 % (11.5-14.5); White Blood Count 7.1 K/mm3 (4.5-10.0)
[2022-09-22 21:27] LABS: Hepatitis B Surface Antigen Negative (Negative); Rubella IgG Antibody 6.1 IU/ML
[2022-09-22 21:54] LABS: HIV 1/2 Ab P24 Ag Result Negative (Negative)
[2022-09-23 10:31] LABS: Rapid Plasma Reagin Non-Reactive (NonReactive)
[2022-09-26 10:31] LABS: CMV IgG Antibody <0.60 U/mL (<0.60)
== END 2022-09-22 15:25 | disposition home or self-care (01) ==
LOC: ANHGOSHLAB 15:26
PROVIDERS: Visit Provider Obstetrics & Gynecology
DX: N91.2 Amenorrhea, unspecified (principal)
CPT/HCPCS: 36415; 84702; 85025; 86592; 86644; 86703; 86747; 86762; 86787; 86850; 86900; 86901; 87086; 87088; 87340; G0432

== ENCOUNTER 2023-01-04 12:45 | Observation (INO) | payer BC, SELFPAY ==
--- NOTE | 2023-01-04 12:45 | LDADM ---
This patient, Elizabeth Lieberman, was admitted to [facility] on 01/04/23 at 12:45. Plans for labor, pain management and were discussed with patient. Patient/family oriented to hospital policies and general routines including ID bracelet, bed and alarms, visiting hours, pain management, procedures, bathroom and other care routines, personal items, smoking policy, room service/diet and guest tray routines, infant security routines, and visiting hours. Patient/Family are encouraged to report perceived risks to care and to ask questions if they do not understand what they are told or what they should do. See OBIX for further documentation.
--- NOTE | 2023-01-04 12:55 | PC.NURSE ---
Pt comes in with complaint of decrease movement and contractions. Pt being seen at [place] [facility] due to baby having 1 lung. Pt reports contractions are frequent.
[2023-01-04] MEDS: TERBUTALINE SULFATE 1 MG/ML VIAL 0.25 MG SUB-Q ×2 (13:30→14:31)
[2023-01-04 13:35] VITALS: BMI 26.2
[2023-01-04 13:47] VITALS: BP 109/65; PULSE 97
[2023-01-04 13:50] LABS: Appearance Urine Clear (Clear); Bilirubin Urine Negative (Negative); Blood Urine Negative (Negative); Color Urine Yellow (Yellow); Glucose Urine UA Negative (Negative); Ketones Urine Negative (Negative); Leukocyte Esterase Ur Negative LEU/UL (Negative); Nitrate Urine Negative (Negative); Protein Urine Negative (Negative); Specific Grav Ur 1.004 (1.001-1.035); Urobilinogen Urine 0.2 mg/dL (<2.0); pH Urine 6.5 (5.0-9.0)
[2023-01-04 13:51] LABS: Add Urine Microscopic? NO
[2023-01-04 14:00] VITALS: BP 104/56; PULSE 99
[2023-01-04 14:15] VITALS: BP 109/65; PULSE 91
[2023-01-04 14:30] VITALS: BP 103/71; PULSE 100
--- NOTE | 2023-01-05 11:31 | P.PNOB_ITS ---
OB - Triage/Final Diagnosis Visit Information Reason for evaluation: threatened labor Comments/Additional reasons for admission: I have assessed the risk for this patient, Elizabeth Lieberman, and determined that she would benefit from observation care. Evaluation Laboratory results: Laboratory Tests 01/04/23 13:38 Urine Color Yellow Urine Appearance Clear Urine pH 6.5 Ur Specific [place] 1.004 Urine Protein Negative Urine Glucose (UA) Negative Urine Ketones Negative Ur Blood (Man) Negative Urine Nitrate Negative Urine Bilirubin Negative Urine Urobilinogen 0.2 Leukocyte Esterase Rfl Negative Vital signs: Vital Signs - 24 hr 01/04/23 13:47 01/04/23 14:00 01/04/23 14:15 Pulse Rate 97 99 91 Blood Pressure 109/65 104/56 L 109/65 01/04/23 14:30 Pulse Rate 100 Blood Pressure 103/71
== END 2023-01-04 15:36 | disposition home or self-care (01) ==
PROVIDERS: Admitting Provider Obstetrics & Gynecology; Visit Provider Obstetrics & Gynecology
DX: O47.03 False labor before 37 completed weeks of gestation, third trimester (principal); Z3A.28 28 weeks gestation of pregnancy
CPT/HCPCS: 81003; 96372; G0378; G0379; J3105